=== PATIENT | male | born 1995 | race Caucasian/White ===

== ENCOUNTER 2021-01-25 04:16 | Emergency (ER) | payer MEDICAID ==
[~2021-01-25] VITALS: Ht 177.8 cm; Wt 54.4 kg
[~2021-01-25 04:16] MED LIST: INSUINJ37 SUBCUT
[2021-01-25 07:00] VITALS: BP 102/64
[2021-01-25] MEDS ORDERED: KETOROLAC TROMETH 60MG/2ML VIAL IM ONE (07:45)
== END 2021-01-25 07:53 | disposition home or self-care (01) ==
LOC: ER 04:17
DX: S62.346A Nondisplaced fracture of base of fifth metacarpal bone, right hand, initial encounter for closed fracture (principal); E11.9 Type 2 diabetes mellitus without complications; W22.8XXA Striking against or struck by other objects, initial encounter; Y93.89 Activity, other specified; Y99.8 Other external cause status; Y92.89 Other specified places as the place of occurrence of the external cause
CPT/HCPCS: 29125; 73130